=== PATIENT | female | born 1945 | race Caucasian/White ===

== ENCOUNTER → 2017-02-02 | Outpatient (CLI) | payer OTHER, MEDICARE ==
[~2017-02-02] MED LIST: FENTANYL PF 100 MCG/2ML ONE; MIDAZOLAM 1 MG/ML, 5ML ONE
== END | disposition home or self-care (01) ==
LOC: RAD 08:13
PROVIDERS: ATTEND Physical Medicine & Rehabilitation
DX: M50.323 Other cervical disc degeneration at C6-C7 level (principal); M43.12 Spondylolisthesis, cervical region; M48.02 Spinal stenosis, cervical region; G96.19 Other disorders of meninges, not elsewhere classified; M48.04 Spinal stenosis, thoracic region; M51.24 Other intervertebral disc displacement, thoracic region; M51.34 Other intervertebral disc degeneration, thoracic region; D18.09 Hemangioma of other sites; M51.44 Schmorl's nodes, thoracic region; M25.78 Osteophyte, vertebrae; N28.1 Cyst of kidney, acquired
CPT/HCPCS: 72141; 72146; 99156; 99157; J2250; J3010

== ENCOUNTER → 2018-09-04 | Outpatient (CLI) | payer OTHER, MEDICARE ==
[~2018-09-04] MED LIST changes: -FENTANYL PF 100 MCG/2ML ONE; +GADOBUTROL 7.5 MMOL/7.5 ML PFS ONE; -MIDAZOLAM 1 MG/ML, 5ML ONE
== END | disposition home or self-care (01) ==
LOC: CFH 07:31
PROVIDERS: ATTEND Podiatrist Foot & Ankle Surgery
DX: M79.675 Pain in left toe(s) (principal); E11.621 Type 2 diabetes mellitus with foot ulcer; L97.503 Non-pressure chronic ulcer of other part of unspecified foot with necrosis of muscle; R60.0 Localized edema; E11.9 Type 2 diabetes mellitus without complications; E11.69 Type 2 diabetes mellitus with other specified complication
CPT/HCPCS: 73720; A9585

== ENCOUNTER 2019-09-30 13:30 | Inpatient (IN) | payer OTHER, MEDICARE ==
[~2019-09-30] VITALS: Ht 165.1 cm; Wt 60.8 kg
[2019-09-30] MEDS ORDERED: LORazepam 2 MG/ML, 1ML ONE (13:42)
--- NOTE | 2019-09-30 13:55 | NUR ---
PT BIB EMS FROM [facility] FOR RIGHT FEMUR FRACTURE. PT SLIPPED THIS AM OUT OF HER CAMPER. DENIES LOC, OR HITTING HEAD. NO OTHER INJURY NOTED. CMS INTACT. PEDAL PULSE 2+ BILAT, WARM TO TOUCH. PAIN 7/10. DENIES CP, SOB, COUGH OR FEVER. IV, DURAND INSERTED FROM PREVIOUS FACILITY. 5O MCG FENTANYL IN ROUTE, PT STATES ATIVAN WORKED WELL FOR SPASMS. MEDICATED PER ORDERS. VSS. BEDSIDE.
[2019-09-30] MEDS ORDERED: SODIUM CHLORIDE FLUSH 10ML SYR IVF ONE (14:00)
[2019-09-30] MEDS ORDERED: LORazepam 2 MG/ML, 1ML IVPush ONE (14:00)
[2019-09-30 14:01] LABS: BASOPHILS # (AUTO) 0.03 x10^3/uL (0-0.1); BASOPHILS % (AUTO) 0 % (0-1); EOSINOPHILS % (AUTO) 1 % (1-7); LYMPHOCYTES # (AUTO) 0.92 x10^3/uL (1-3.4); LYMPHOCYTES % (AUTO) 10 % (22-44); MD NO; MEAN CORPUSCULAR HEMOGLOBIN 31.3 pg (27.0-34.8); MEAN CORPUSCULAR HGB CONC 33.7 g/dL (32.4-35.8); MEAN CORPUSCULAR VOLUME 92.8 fL (80-100); MEAN PLATELET VOLUME 8.4 fL (7.4-10.4); MONOCYTES # (AUTO) 0.54 x10^3/uL (0.2-0.8); MONOCYTES % (AUTO) 6 % (2-9); NEUTROPHILS # (AUTO) 7.92 x10^3/uL (1.8-6.8); NEUTROPHILS % (AUTO) 83 % (42-75); PLATELET COUNT 203 x10^3/uL (130-400); RED BLOOD COUNT 4.39 x10^6/uL (3.82-5.3); RED CELL DISTRIBUTION WIDTH 13.2 % (9.6-15.2)
--- NOTE | 2019-09-30 14:06 | NUR ---
dr laguerre spoke with dr shine
[2019-09-30 14:10] LABS: INTERNATIONAL NORMALIZED RATIO 1.04 (0.93-1.1)
[2019-09-30 14:14] LABS: ALANINE AMINOTRANSFERASE 28 U/L (12-78); ANION GAP 7 mmol/L (5-15); CALCIUM 8.7 mg/dL (8.5-10.1); CHLORIDE 103 mmol/L (98-107); CREATININE 0.82 mg/dL (0.55-1.02)
[2019-09-30 14:16] LABS: ALKALINE PHOSPHATASE 70 U/L (45-117); BILIRUBIN,TOTAL 0.5 mg/dL (0.2-1.0); TOTAL PROTEIN 7.1 g/dL (6.4-8.2)
[2019-09-30] MEDS ORDERED: FENTANYL PF 100 MCG/2ML ONE ×4 (15:43→19:31)
[2019-09-30 15:59] VITALS: BP 149/87
[2019-09-30 16:00] VITALS: BP 149/87
[2019-09-30] MEDS ORDERED: FENTANYL PF 100 MCG/2ML IV ONE (16:00)
[2019-09-30 16:11] VITALS: BP 149/87
[2019-09-30] MEDS ORDERED: DOCUSATE 100 MG CAPSULE PO PRN (16:30)
[2019-09-30] MEDS ORDERED: HYDROmorphone 2 MG/ML, 1ML IVPush PRN (16:30)
[2019-09-30] MEDS ORDERED: POLYETHYLENE GLYCOL 17 GM PACKET PO PRN (16:30)
[2019-09-30] MEDS ORDERED: HYDROcodone/APAP 5/325 TABLET PO PRN (16:30)
[2019-09-30] MEDS ORDERED: ONDANSETRON 2MG/ML, 2ML IVPush PRN (16:30)
[2019-09-30] MEDS ORDERED: HEPARIN 5,000 UNITS/ML, 1ML SQ SCH (16:30)
[2019-09-30] MEDS ORDERED: LACTATED RINGERS 1,000 ML IV SCH (16:30)
[2019-09-30] MEDS ORDERED: ACETAMINOPHEN 325 MG TABLET PO PRN (16:30)
[2019-09-30] MEDS ORDERED: ONDANSETRON ODT 4 MG PO PRN (16:30)
[2019-09-30] MEDS ORDERED: LORazepam 2 MG/ML, 1ML IVPush PRN (16:30)
[2019-09-30] MEDS ORDERED: DEXAMETHASONE 4 MG/ML, 1ML ONE (18:49)
[2019-09-30] MEDS ORDERED: CEFAZOLIN 1,000 MG ONE (18:49)
[2019-09-30] MEDS ORDERED: PROPOFOL 10 MG/ML, 20ML ONE (18:49)
[2019-09-30] MEDS ORDERED: ONDANSETRON 2MG/ML, 2ML ONE (18:49)
[2019-09-30] MEDS ORDERED: OXYcodone 5 MG/5 ML ORAL.SOL UDC ONE (19:31)
[2019-09-30] MEDS: FENTANYL PF 100 MCG/2ML IV PRN ×2 (19:35→19:40)
[2019-09-30] MEDS ORDERED: OXYcodone 5 MG/5 ML ORAL.SOL UDC PO PRN (20:00)
[2019-09-30 20:29] VITALS: BP 125/82
[2019-09-30] MEDS ORDERED: ATORVASTATIN 40 MG TABLET PO SCH (21:00)
[2019-09-30] MEDS ORDERED: ONDANSETRON 2MG/ML, 2ML IV PRN (22:00)
[2019-09-30] MEDS: KETOROLAC 30 MG/1 ML IV SCH (22:10)
[2019-09-30] MEDS: OXYcodone IR 5MG TABLET PO PRN (23:46)
[2019-10-01] MEDS: CEFAZOLIN PMX 1GM/50ML 50 ML IV SCH ×3 (02:39→17:34)
[2019-10-01 03:47] VITALS: BP 118/72
[2019-10-01] MEDS: OXYcodone IR 5MG TABLET PO PRN ×3 (04:03→23:38)
[2019-10-01] MEDS ORDERED: LEVOTHYROXINE 88 MCG TABLET PO SCH (06:00)
[2019-10-01] MEDS: KETOROLAC 30 MG/1 ML IV SCH ×2 (06:07→13:01)
[2019-10-01 06:18] LABS: BASOPHILS # (AUTO) 0.01 x10^3/uL (0-0.1); BASOPHILS % (AUTO) 0 % (0-1); EOSINOPHILS % (AUTO) 0 % (1-7); LYMPHOCYTES # (AUTO) 0.57 x10^3/uL (1-3.4); MD NO; NEUTROPHILS % (AUTO) 90 % (42-75)
[2019-10-01 06:28] LABS: ANION GAP 10 mmol/L (5-15); CALCIUM 8.9 mg/dL (8.5-10.1); CHLORIDE 98 mmol/L (98-107)
[2019-10-01 06:29] LABS: CREATININE 1.08 mg/dL (0.55-1.02)
[2019-10-01 07:04] LABS: LYMPHOCYTES % (AUTO) 5 % (22-44); MEAN CORPUSCULAR HEMOGLOBIN 31.5 pg (27.0-34.8); MEAN CORPUSCULAR HGB CONC 33.8 g/dL (32.4-35.8); MEAN CORPUSCULAR VOLUME 93.3 fL (80-100); MEAN PLATELET VOLUME 9.1 fL (7.4-10.4); MONOCYTES # (AUTO) 0.58 x10^3/uL (0.2-0.8); MONOCYTES % (AUTO) 5 % (2-9); NEUTROPHILS # (AUTO) 10.45 x10^3/uL (1.8-6.8); PLATELET COUNT 210 x10^3/uL (130-400); RED BLOOD COUNT 3.83 x10^6/uL (3.82-5.3); RED CELL DISTRIBUTION WIDTH 13.3 % (9.6-15.2)
[2019-10-01 07:52] VITALS: BP 103/66
[2019-10-01] MEDS ORDERED: SENNA/DOCUSATE TABLET PO SCH (09:00)
[2019-10-01] MEDS: ENOXAPARIN 40 MG/0.4 ML SQ SCH (10:59)
[2019-10-01 14:06] VITALS: BP 112/65
[2019-10-01] MEDS ORDERED: LEVO88TA2 PO (14:50)
[2019-10-01] MEDS ORDERED: HYDR25TA6 PO (14:50)
[2019-10-01] MEDS ORDERED: ROSU10TA2 PO (14:50)
[2019-10-01] MEDS ORDERED: SUCCINYLCHOLINE 20 MG/ML, 10ML ONE (18:32)
[2019-10-01] MEDS ORDERED: PHENYLEPHRINE 10 MG/ML ONE (18:32)
[2019-10-01] MEDS ORDERED: ROCURONIUM 10MG/ML,5ML ONE (18:32)
[2019-10-01 19:01] VITALS: BP 97/59
[2019-10-01] MEDS: ATORVASTATIN 40 MG TABLET PO SCH (20:57)
[2019-10-02] VITALS (8 sets, daily range): BP systolic 74–134; BP diastolic 35–69
[2019-10-02] MEDS: OXYcodone IR 5MG TABLET PO PRN (03:53)
[2019-10-02] MEDS: LEVOTHYROXINE 88 MCG TABLET PO SCH (05:45)
[2019-10-02 06:25] LABS: BASOPHILS # (AUTO) 0.03 x10^3/uL (0-0.1); BASOPHILS % (AUTO) 0 % (0-1); EOSINOPHILS # (AUTO) 0.07 x10^3/uL (0-0.4); EOSINOPHILS % (AUTO) 1 % (1-7); LYMPHOCYTES % (AUTO) 15 % (22-44); MD NO; MEAN CORPUSCULAR HEMOGLOBIN 31.8 pg (27.0-34.8); MEAN CORPUSCULAR HGB CONC 34.3 g/dL (32.4-35.8); MEAN CORPUSCULAR VOLUME 92.9 fL (80-100); MEAN PLATELET VOLUME 8.7 fL (7.4-10.4); MONOCYTES # (AUTO) 0.41 x10^3/uL (0.2-0.8); MONOCYTES % (AUTO) 7 % (2-9); NEUTROPHILS # (AUTO) 4.78 x10^3/uL (1.8-6.8); NEUTROPHILS % (AUTO) 77 % (42-75); PLATELET COUNT 130 x10^3/uL (130-400); RED BLOOD COUNT 2.62 x10^6/uL (3.82-5.3); RED CELL DISTRIBUTION WIDTH 12.8 % (9.6-15.2)
[2019-10-02 06:34] LABS: ANION GAP 9 mmol/L (5-15); CALCIUM 8.2 mg/dL (8.5-10.1); CHLORIDE 94 mmol/L (98-107); CREATININE 0.67 mg/dL (0.55-1.02)
[2019-10-02] MEDS ORDERED: SODIUM CHLORIDE 0.9%, 500ML IVBOLUS ONE ×2 (09:30→14:00)
[2019-10-02] MEDS ORDERED: ACETAMINOPHEN 325 MG TABLET ONE (11:05)
[2019-10-02] MEDS: ENOXAPARIN 40 MG/0.4 ML SQ SCH (11:06)
[2019-10-02] MEDS: ACETAMINOPHEN 325 MG TABLET PO PRN (11:06)
[2019-10-02] MEDS: ATORVASTATIN 40 MG TABLET PO SCH (21:02)
[2019-10-03] MEDS: ACETAMINOPHEN 325 MG TABLET PO PRN ×2 (00:06→17:06)
[2019-10-03 02:00] VITALS: BP 110/64
[2019-10-03] MEDS: OXYcodone IR 5MG TABLET PO PRN ×3 (02:08→17:07)
[2019-10-03] MEDS: LEVOTHYROXINE 88 MCG TABLET PO SCH (05:44)
[2019-10-03 07:26] VITALS: BP 126/68
[2019-10-03] MEDS: ENOXAPARIN 40 MG/0.4 ML SQ SCH (08:14)
[2019-10-03 09:07] LABS: BASOPHILS # (AUTO) 0.04 x10^3/uL (0-0.1); BASOPHILS % (AUTO) 1 % (0-1); EOSINOPHILS # (AUTO) 0.03 x10^3/uL (0-0.4); EOSINOPHILS % (AUTO) 1 % (1-7); LYMPHOCYTES # (AUTO) 0.85 x10^3/uL (1-3.4); LYMPHOCYTES % (AUTO) 15 % (22-44); MD NO; MEAN CORPUSCULAR HEMOGLOBIN 32.5 pg (27.0-34.8); MEAN CORPUSCULAR HGB CONC 35.1 g/dL (32.4-35.8); MEAN CORPUSCULAR VOLUME 92.6 fL (80-100); MEAN PLATELET VOLUME 8.4 fL (7.4-10.4); MONOCYTES # (AUTO) 0.33 x10^3/uL (0.2-0.8); MONOCYTES % (AUTO) 6 % (2-9); NEUTROPHILS % (AUTO) 78 % (42-75); PLATELET COUNT 145 x10^3/uL (130-400); RED BLOOD COUNT 2.62 x10^6/uL (3.82-5.3)
[2019-10-03 09:15] LABS: ANION GAP 7 mmol/L (5-15); CALCIUM 8.6 mg/dL (8.5-10.1); CHLORIDE 101 mmol/L (98-107)
[2019-10-03 09:17] LABS: CREATININE 0.63 mg/dL (0.55-1.02)
[2019-10-03] MEDS ORDERED: SENNA/DOCUSATE TABLET PO PRN (10:00)
[2019-10-03] MEDS ORDERED: POLYETHYLENE GLYCOL 17 GM PACKET NG PRN (10:00)
[2019-10-03] MEDS ORDERED: OXYC-302 PO (13:44)
[2019-10-03] MEDS ORDERED: ASPI-515 PO (13:44)
[2019-10-03 13:51] VITALS: BP 98/59
== END 2019-10-03 17:10 | DRG 480 ==
LOC: ED 14:44 → EDIP 14:45 → 4NE 15:26
PROVIDERS: ADMIT Family Medicine; ATTEND Family Medicine
PROC: 0QS606Z Reposition Right Upper Femur with Intramedullary Internal Fixation Device, Open Approach (ICD-10-PCS; principal; 2019-09-30 18:00)
DX: S72.141A Displaced intertrochanteric fracture of right femur, initial encounter for closed fracture (principal); J96.01 Acute respiratory failure with hypoxia; D62 Acute posthemorrhagic anemia; M85.80 Other specified disorders of bone density and structure, unspecified site; I10 Essential (primary) hypertension; E78.5 Hyperlipidemia, unspecified; Z66 Do not resuscitate; W18.39XA Other fall on same level, initial encounter; D64.9 Anemia, unspecified; I95.1 Orthostatic hypotension; E03.9 Hypothyroidism, unspecified; Z82.3 Family history of stroke; Z80.8 Family history of malignant neoplasm of other organs or systems; Z90.710 Acquired absence of both cervix and uterus; Y93.89 Activity, other specified; Y92.89 Other specified places as the place of occurrence of the external cause; Y99.8 Other external cause status
CPT/HCPCS: 36415; 71045; 76000; 80048; 80053; 82306; 85014; 85018; 85025; 85610; 87635; 93005; 96374; 99285; C1713; G0378; J0690; J1100; J1170; J1650; J1885; J2405; J2704; J3010; J0330; J2060; J2370; J7040; J7120